=== PATIENT | male | born 2000 | race Caucasian/White ===

== ENCOUNTER 2023-10-30 11:03 | Outpatient (CLI) | payer OTHER | END 2023-10-30 11:10 | disposition home or self-care (01) | LOC: RAD 11:03 | PROVIDERS: ATTEND Orthopaedic Surgery | DX: S92.352A Displaced fracture of fifth metatarsal bone, left foot, initial encounter for closed fracture (principal) ==

== ENCOUNTER 2023-11-25 08:18 | Outpatient (CLI) | payer OTHER | END 2023-11-25 08:22 | disposition home or self-care (01) | LOC: RAD 08:18 | PROVIDERS: ATTEND Orthopaedic Surgery | DX: S92.352A Displaced fracture of fifth metatarsal bone, left foot, initial encounter for closed fracture (principal) ==